=== PATIENT | female | born 1990 | race Asian ===

== ENCOUNTER 2022-01-18 16:14 | Emergency (ER) | payer BC, SELFPAY ==
--- NOTE | ~2022-01-18 | US_ITS ---
EXAMINATION: US pelvic complete DATE: 01/18/2022 17:35 INDICATION: r/o left ovarian torsion TECHNIQUE: Multiple transabdominal and endovaginal sonographic images of the pelvis were obtained. COMPARISON: None. FINDINGS: Uterus: 7.2 x 4.2 by 2.5 cm. Endometrial complex measures 2 mm. Minimal fluid in the endometrial cavi ty. IUD, in good position. Right Ovary: 4.1 x 1.8 x 2.0 cm. Vascular flow is present. 1.4 cm circumscribed simple cyst with thin septae. Left Ovary: 4.4 x 1.5 x 1.6 cm. Vascular flow is present. Multiple follicles. There is small volume free fluid in the pelvis. IMPRESSION: Normal pelvic sonogram findings. Reviewed, dictated and finalized at location K.
[2022-01-18 16:24] VITALS: BP 138/84; PULSE 116; RESP 18; TEMP 37.3; O2SAT 100
--- NOTE | 2022-01-18 16:34 | ED.ABDPAIN ---
HPI - Abdominal Pain General Chief Complaint: Abdominal Pain Stated Complaint: LL ABD PAIN Time Seen by Provider: 01/18/22 16:27 History of Present Illness HPI narrative: Patient is a 31-year-old female presenting with left lower quadrant pain. States that it developed earlier today and has persisted despite taking naproxen and Tylenol. States its associated with nausea but no vomiting. Denies vaginal bleeding, diarrhea, dysuria. Denies fevers or chills, chest pain, shortness of breath, cough, flank pain. Review of Systems Review of Systems: All systems reviewed & are unremarkable except as noted in HPI and below Exam Narrative: GENERAL: Well-appearing, well-nourished, and in no acute distress. HEAD: Normocephalic, atraumatic. EYES: PERRLA and EOMI. ENT: Nares clear, no rhinorrhea or epistaxis. Mucous membranes moist. NECK: Supple. CHEST: Clear to auscultation. No respiratory distress. HEART: Regular rate and rhythm. No murmur heard. Normal peripheral pulses. ABDOMEN: Soft, nontender, nondistended, normal active bowel sounds. EXTREMITIES: Normal range of motion. No edema. SKIN: Warm, dry, no rash. NEURO: No focal deficits. Alert and oriented x3. PSYCH: Normal mood and affect. Course Course Emergency Course: Patient is a 31-year-old female presenting with left lower quadrant pain. Patient is mildly tachycardic, otherwise vitals are within normal limits. Patient is well-appearing and in no acute distress. Exam is unremarkable. No significant abdominal tenderness. Pelvic ultrasound is normal. No evidence of torsion. UA is unremarkable. Patient is reassured by the unremarkable work-up. She feels comfortable going home. Discharged in stable condition. Vital Signs Vital signs: Vital Signs Temperature 99.2 F 01/18/22 16:24 Pulse Rate 116 H 01/18/22 16:24 Respiratory Rate 18 01/18/22 16:24 Blood Pressure 138/84 01/18/22 16:24 Pulse Oximetry 100 01/18/22 16:24 Oxygen Delivery Room Air 01/18/22 16:24 Temperature 99.2 F 01/18/22 16:24 Pulse Rate 116 H 01/18/22 16:24 Respiratory Rate 18 01/18/22 16:24 Blood Pressure 138/84 01/18/22 16:24 Pulse Oximetry 100 01/18/22 16:24 Oxygen Delivery Room Air 01/18/22 16:24 MDM - Abdominal Pain Lab Data Labs: Lab Results 01/18/22 Range/Units 17:30 Urine Color Yellow (Yellow) Urine Appearance Slightly cloudy (Clear) Urine pH 8.5 (5.0-9.0) Ur Specific [place] 1.020 (1.001-1.035) Urine Protein Negative (Negative) mg/dL Urine Glucose (UA) Trace H (Negative) mg/dL Urine Ketones Negative (Negative) mg/dL Ur Blood (Man) Negative (Negative) Urine Nitrate Negative (Negative) Urine Bilirubin Negative (Negative) Urine Urobilinogen 0.2 (<2.0) mg/dL Leukocyte Esterase Rfl Negative (Negative) JEAN/UL Urine RBC 3-5 H (0-2) /hpf Urine WBC 0-3 /hpf Ur Squamous Epith Cells Occasional (Few) /hpf Urine Yeast (Budding) Present H (None) /hpf UCG Bedside Result Negative Reference Range: Negative Imaging Data Radiologist's impression: ITS Impressions Pelvis Ultrasound 01/18/22 17:41 IMPRESSION: Normal pelvic sonogram findings. Critical Care Time Critical Care Time Critical Care Time: No Discharge Plan Discharge Clinical Impression: Left lower quadrant abdominal pain Patient Disposition: Home, Self-Care Condition: Stable Instructions: Antibiotic Form, Abdominal Pain (ED) Follow-up/Referrals: PHYSICIAN,CUSTOMER SERVICE MANAGER [Primary Care Provider] -
[2022-01-18 17:36] LABS: Appearance Urine Slightly Cloudy (Clear); Bilirubin Urine Negative (Negative); Blood Urine Negative (Negative); Color Urine Yellow (Yellow); Glucose Urine UA Trace mg/dL (Negative); Ketones Urine Negative (Negative); Leukocyte Esterase Ur Negative LEU/UL (Negative); Nitrate Urine Negative (Negative); Protein Urine Negative (Negative); Urobilinogen Urine 0.2 mg/dL (<2.0); pH Urine 8.5 (5.0-9.0)
[2022-01-18 17:46] LABS: Budding Yeast Urine Present /hpf; Squamous Epithelial Cell Urine Occasional /hpf (Few); WBC Urine 0-3 /hpf
[2022-01-18 17:48] LABS: Add Urine Microscopic? YES
== END 2022-01-18 18:19 | disposition home or self-care (01) ==
PROVIDERS: Emergency Provider Emergency Medicine
DX: R10.32 Left lower quadrant pain (principal)
CPT/HCPCS: 76856; 81001; 81025; 99284